=== PATIENT | female | born 1975 | race Caucasian/White ===

== ENCOUNTER 2018-08-22 19:41 | Emergency (ER) | payer MEDICAID ==
[~2018-08-22] VITALS: Ht 172.7 cm; Wt 68.0 kg
[2018-08-23 01:10] VITALS: BP 116/71
== END 2018-08-23 01:15 | disposition home or self-care (01) ==
LOC: ER 19:51
DX: S83.92XA Sprain of unspecified site of left knee, initial encounter (principal); M25.462 Effusion, left knee; X58.XXXA Exposure to other specified factors, initial encounter; Y93.02 Activity, running; Y92.811 Bus as the place of occurrence of the external cause; Y99.8 Other external cause status
CPT/HCPCS: 73562; 81025

== ENCOUNTER 2019-06-07 22:01 | Emergency (ER) | payer MEDICAID, OTHER ==
[~2019-06-07] VITALS: Ht 172.7 cm; Wt 64.6 kg
[2019-06-07 22:06] VITALS: BP 159/99
== END 2019-06-07 22:33 | disposition left against medical advice (07) ==
LOC: ER 22:02
DX: R11.2 Nausea with vomiting, unspecified (principal); Z53.21 Procedure and treatment not carried out due to patient leaving prior to being seen by health care provider